=== PATIENT | male | born 1975 | race Caucasian/White ===

== ENCOUNTER 2021-08-25 14:52 | Emergency (ER) | payer OTHER, MEDICAID, SELFPAY ==
[2021-08-25 15:15] VITALS: BP 144/79; PULSE 91; RESP 16; TEMP 36.9; O2SAT 95; BMI 41.9
== END 2021-08-25 17:21 | disposition left against medical advice (07) ==
PROVIDERS: Emergency Provider Emergency Medicine; PCP Family Medicine
DX: R09.89 Other specified symptoms and signs involving the circulatory and respiratory systems (principal)
CPT/HCPCS: 99281

== ENCOUNTER 2021-08-25 18:14 | Emergency (ER) | payer OTHER, MEDICAID, SELFPAY ==
[2021-08-25 18:22] VITALS: BP 130/85; PULSE 96; RESP 20; TEMP 36.5; O2SAT 100; BMI 41.9
--- NOTE | 2021-08-25 22:10 | ED_ITS ---
HPI - Skin/Abscess/Foreign Bdy General Chief complaint: Skin/Abscess/Foreign Body Stated complaint: Cheese Stuck in Throat Time Seen by Provider: 08/25/21 22:10 Source: patient Mode of arrival: Ambulatory Limitations: no limitations History of Present Illness HPI narrative: Patient is a 46-year-old male who presents with possible food bolus. He says he [facility] beat [facility] she [facility] at that time he felt like it was stuck. He was unable to swallow although he did try some chips. He forced himself to throw up. He has since been able to keep down liquids but still feels like there is something stuck in his throat. He went to [facility] where he says they didn't do anything because he could drink water. He then was in the waiting room, threw up in the bathroom, felt better, left and returned because he thought it was still there. He has now been in the emergency department for 4 hours managing his secretions in keeping fluids down. He has no other symptoms this time. Related Data Previous Rx's Medication Instructions Recorded omeprazole 20 mg tablet,delayed 20 mg PO DAILY #30 tab 08/25/21 release Allergies Allergy/AdvReac Type Severity Reaction Status Date / Time No Known Drug Allergies Allergy Verified 08/25/21 15:15 Review of Systems Review of Systems Narrative: GENERAL: Denies chills, fatigue, malaise, fever, sweats, travel HEENT: See HPI RESPIRATORY: Denies dyspnea, cough, wheezing, hemoptysis, sputum. CARDIOVASCULAR: Denies chest pain, palpitations, orthopnea, edema GASTROINTESTINAL: Denies nausea, vomiting, abdominal pain, diarrhea, c onstipation, melena. : Denies dysuria, frequency, incontinence, hematuria, urinary retention, flank pain. MUSCULOSKELETAL: Denies weakness, joint pain, or bony pain SKIN: No rash, no erythema, no pruritus NEUROLOGIC: Denies weakness, dizziness, headache, numbness, change in speech, confusion PSYCHIATRIC: No concerning psychosocial issues. 12 point review of systems is negative except for those stated above and HPI Patient History Social History Smoking Status: Former smoker Smoking Status: Former smoker tobacco type: cigarettes Substance Use Type: marijuana Exam Initial Vital Signs Initial Vital Signs: Vital Signs Temperature 97.7 F 08/25/21 18:22 Pulse Rate 96 H 08/25/21 18:22 Respiratory Rate 20 08/25/21 18:22 Blood Pressure 130/85 08/25/21 18:22 Pulse Oximetry 100 08/25/21 18:22 GENERAL: Alert 46-year-old male no acute distress CARDIOVASCULAR: peripheral pulses in tact, cap refill <2 sec RESPIRATORY: No respiratory distress, speaks in full sentences without difficulty, managing secretions EXTREMITIES: Normal range of motion, no clubbing or edema. Neurovascularly intact NEUROLOGICAL: Cranial nerves II through XII grossly intact. Normal gait and speech. SKIN: Warm, dry, no petechiae, no rashes or lesions. 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 He does not seem to have any obstructive food bolus at this time.He is given a GI cocktail which helped some. 7 Dr. Bingham surgery has been updated patient's symptoms test results at th is time no need for EGD. Recommend discharge on a PPI Discharge Plan Departure Patient Disposition: Home Clinical Impression: Food bolus obstruction of intestine, Esophageal spasm Instructions: Steakhouse Syndrome Activity Restrictions/Additional Instructions: *You have been diagnosed with food bolus/esophageal spasm *What to do: At this time what your feeling is likely irritation in your esophagus/food pipe from the meat and cheese stick. Surgery said there is no need to go in and get it at this time. *Continue to take medications as directed Bursal 20 mg once a day *Follow up with your primary care provider in 2-3 days or call [phone] *Return to ER if you should have inability to swallow spit inability, to swallow fluid, inability to swallow food or any new, worsening or concerning symptoms Prescriptions: New omeprazole 20 mg tablet,delayed release (DR/EC) 20 mg PO DAILY Qty: 30 0RF Referrals: Jovani Patel MD [Primary Care Provider] -
[2021-08-25] MEDS: MAG HYDROX/ALUMINUM/SIMETH SUS 20 ML, LIDOCAINE VISCOUS 2% 15 ML PO (22:51)
--- NOTE | 2021-08-25 22:57 | PC.NURSE ---
pt was seen at outside facility earlier today for something stuck in his throat pt states he would not drink the doctors water there, pt came here vomited a few times LWBS and has returned for the same feeling, upon given the pt his medication to take pt stated I'm very weary of taking medication mixed by someone else, pt looked at the med for a few seconds then stated ther is no telling what was hocked in here, pt then drank the medication
== END 2021-08-25 23:04 | disposition home or self-care (01) ==
PROVIDERS: Emergency Provider Emergency Medicine; PCP Family Medicine
DX: T18.128A Food in esophagus causing other injury, initial encounter (principal); K22.4 Dyskinesia of esophagus; X58.XXXA Exposure to other specified factors, initial encounter
CPT/HCPCS: 99281; 99283